=== PATIENT | female | born 1990 | race Caucasian/White ===

== ENCOUNTER 2023-03-10 11:21 | Emergency (ER) | payer OTHER, SELFPAY ==
--- NOTE | 2023-03-10 11:27 | ED.ABDPAIN ---
HPI - Abdominal Pain General Chief Complaint: Abdominal Pain Stated Complaint: abd pain sent by Urgent Care Related Data Allergies Allergy/AdvReac Type Severity Reaction Status Date / Time No Known Allergies Allergy Verified 03/10/23 11:30 [facility] Social History Social History Advance Directives: No Advance Directives Information Provided: No Physical Exam ED Vital Signs: BMI result Body Mass Index 25.2 Course Course Course Narrative: RME: 33 yo F w/PMHx presenting to the ED c/o LLQ abdoiminal pain and dysuria x yesterday, sent in from . +frequency. LMP ?25 days ago. denies vaginal bleeding or d/c abdomen soft w/suprapubic/L suprapubic/lower quadrant tenderness Labs, UA, pelvic and renal ultrasound ordered Full HPI, ROS and PE to be performed by primary ED provider. Medical Decision Making Lab Data 03/10/23 11:40 03/10/23 11:40 Labs: Lab Results 03/10/23 03/10/23 Range/Units 11:40 11:44 WBC 5.5 (4.8-10.8) X10*3/uL RBC 4.05 L (4.20-5.50) X10*6/uL Hgb 11.4 L (12.0-16.0) g/dl Hct 35.3 L (37.0-47.0) % MCV 87.2 (80.0-98.0) fL MCH 28.1 (27.0-33.0) pg MCHC 32.3 (31.0-35.0) g/dl RDW 14.2 (11.0-16.0) % Plt Count 221 (160-400) X10*3/uL MPV 10.6 (9.4-12.3) fL Immature Gran % (Auto) Cancelled Neut % (Auto) Cancelled Lymph % (Auto) Cancelled [place] % (Auto) Cancelled Eos % (Auto) Cancelled Baso % (Auto) Cancelled Lymph # (Auto) Cancelled [place] # (Auto) Cancelled Eos # (Auto) Cancelled Baso # (Auto) Cancelled Abs Immat Gran (auto) Cancelled Absolute Neuts (auto) Cancelled Absolute Nucleated RBC 0.000 (0.0-0.012) X10*3/uL Nucleated RBC % (auto) 0.0 (0.0-0.2) /100WBC Neutrophils % (Manual) 67 (45-73) % Band Neutrophils % 0 L (3-5) % Lymphocytes % (Manual) 29 (20-40) % Monocytes % (Manual) 2 (2-11) % Eosinophils % (Manual) 2 (0-4) % Abs Neuts (Manual) 3.7 (2.0-8.3) X10*3/uL Lymphocytes # (Manual) 1.6 (1.2-4.9) X10*3/uL Monocytes # (Manual) 0.1 (0.1-1.2) X10*3/uL Eosinophils # (Manual) 0.1 (0.0-0.4) X10*3/uL Platelet Estimate NORMAL (NORMAL) Plt Morphology Comment NORMAL RBC Morphology NORMAL Sodium 141 (135-145) mmol/L Potassium 4.0 (3.3-5.1) mmol/L Chloride 111 H (96-108) mmol/L Carbon Dioxide 25 (22-29) mmol/L Anion Gap 9 L (12-20) BUN 10 (9-16) mg/dL Creatinine 0.63 (0.5-1.4) mg/dL Estim Creat Clear Calc 118.0 Estimated GFR > 60 Random Glucose 84 (60-115) mg/dL Calcium 9.1 (8.4-10.2) mg/dL Magnesium 2.0 (1.6-2.6) mg/dL Total Bilirubin 1.6 H (0.0-1.0) mg/dL Direct Bilirubin 0.5 (0.0-0.5) mg/dL AST 17 (5-31) U/L ALT 17 (0-31) U/L Alkaline Phosphatase 80 (39-117) U/L Total Protein 7.3 (6.5-8.0) g/dL Albumin 4.5 (3.5-5.0) g/dL Lipase 21 (8-78) U/L Urine Color [place] A Urine Appearance Cloudy Urine pH 5.5 (5.0-9.0) Ur Specific [place] 1.020 (1.005-1.025) Urine Protein Negative (Neg-Trace) mg/dL Urine Glucose (UA) Negative (Negative) mg/dL Urine Ketones Negative (Negative) mg/dL Urine Blood Small (1+) H (Negative) Urine Nitrite Negative (Negative) Ur Leukocyte Esterase Small (1+) H (Negative) Urine RBC 6-10 H (0-2) /HPF Urine WBC 0-5 (0-5) /HPF Ur Squamous Epith Cells 11-20 (0-2) /HPF Urine Bacteria 1+ (None Seen) Hyaline Casts 0-2 (0-2) /LPF Urine Yeast Present Urine Test NEGATIVE (NEGATIVE) Discharge Plan Discharge Clinical Impression: Abdominal pain Patient Disposition: Left W/O Completing Treatment Stand Alone Forms: Against Medical Advice Discharge Date/Time: 03/10/23 19:56
[2023-03-10 11:28] VITALS: BP 114/66; PULSE 62; RESP 18; TEMP 36.1; O2SAT 97; BMI 25.2
== END 2023-03-10 19:56 | disposition left against medical advice (07) ==
PROVIDERS: Emergency Provider Emergency Medicine; PCP Internal Medicine
DX: R30.0 Dysuria (principal); R10.32 Left lower quadrant pain
CPT/HCPCS: 36415; 76775; 76830; 76856; 80048; 80076; 81001; 81003; 81025; 83690; 83735; 85007; 85027; 87086; 93975; 99282; 99284

== ENCOUNTER 2024-05-07 13:50 | Emergency (ER) | payer OTHER, SELFPAY ==
--- NOTE | ~2024-05-07 | CT_ITS ---
CLINICAL HISTORY: Abdominal pain. cramping, rectal bleeding. colitis CT abdomen and pelvis without contrast Comparison: None Findings: Examination is limited by without contrast. Lung bases are clear. No pleural effusion. There is an indeterminate 2.4 x 2.7 cm hypodense lesion in the right lobe of the liver series 3, image 19. Mild splenomegaly. Pancreas and both adrenals show normal size, shape and attenuation on present unenhanced scan. No CBD dilatation. No calcified gallstone in the gallbladder. Both kidneys reveal normal in size, shape, position and attenuation. Limited evaluation of a 6.5 cm right renal cyst. No kidney stone. No hydronephrosis. The IVC, aorta and portal vein are within normal position and caliber. No evidence of retroperitoneal lymphadenopathy or ascites. Small fat containing umbilical hernia. Appendix is not visualized. No evidence of bowel obstruction. There is bowel wall thickening of the descending colon, sigmoid colon and rectum. Bladder is decompressed. The pelvic organs are unremarkable. Visualized osseous structures appear unremarkable. No lytic or sclerotic bony lesion. IMPRESSION: Bowel wall thickening of the colon concerning for colitis. Correlation with colonoscopy findings as indicated. There is an indeterminate lesion in the liver. Further evaluation by multiphase contrast CT or MRI as indicated. Additional findings as above. This document has been electronically signed by: Rand Renee MD on 05/07/2024 18:35:18
[2024-05-07 13:58] VITALS: BP 112/67; PULSE 99; RESP 16; TEMP 36.5; O2SAT 98; BMI 26.0
--- NOTE | 2024-05-07 14:07 | ED.GENADULT ---
HPI - General Adult General Chief complaint: Nausea/Vomiting/Diarrhea Stated complaint: cramping Time Seen by Provider: 05/07/24 18:33 Source: patient, RN notes reviewed and old records reviewed Mode of arrival: ambulatory Limitations: no limitations History of Present Illness ED Provider: Carlo RAMÍREZ narrative: 34-year-old female presents for evaluation of abdominal pain, nausea vomiting, diarrhea. She also complains of bloody stool. She developed lower abdominal cramping this morning with bright red blood per rectum. She does report a history of similar. This is happened twice in the past and all 3 times counting today she was taking Macrobid for UTI when the rectal bleeding started. the patient has a family history of colon cancer and had a colonoscopy in January that did not show any concerning findings she has no other complaints or concerns at this time. Denies any history abdominal surgeries Related Data Previous Rx's ?Medication ?Instructions ?Recorded amoxicillin 875 mg-potassium 1 tab PO Q12H #14 tabs 05/07/24 clavulanate 125 mg tablet Allergies Allergy/AdvReac Type Severity Reaction Status Date / Time No Known Allergies Allergy Verified 05/07/24 14:08 Review of Systems Constitutional: Constitutional: Denies body ache(s), Denies chills, Denies fever(s) and Denies headache(s) Eyes: Eyes: Denies blurry vision ENT: Denies vertigo and Denies headache(s) Cardiovascular: Cardiovascular: Denies chest pain and Denies dyspnea Respiratory: Respiratory: Denies cough and Denies dyspnea Gastrointestinal: Gastrointestinal: Reports abdominal pain, Denies melena, Reports hematochezia, Reports diarrhea, Reports loose stools and Reports vomiting Musculoskeletal: Musculoskeletal: Denies back pain Integumentary/Breasts: Skin/Breast: Denies rash Neurologic: Denies vertigo and Denies headache(s) PMFSH Social History Social History Advance Directives: No Advance Directives Information Provided: Yes Physical Exam ED Vital Signs: Vital Signs - 24 hr 05/07/24 13:58 05/07/24 19:22 Temperature 97.7 F 97.7 F Pulse Rate 99 99 Respiratory Rate 16 16 Blood Pressure 112/67 112/67 Pulse Oximetry 98 98 Oxygen Delivery Method Room Air Room Air BMI result Body Mass Index 26.0 Const General: healthy appearing, comfortable, no acute distress, alert and awake Nutritional Appearance: well nourished Orientation/consciousness: patient oriented x3 HENMT Head: Yes normocephalic and Yes atraumatic Eyes Eyelids: Yes eyelids normal Conjunctivae: conjunctivae normal Sclerae: sclerae normal Corneas: corneas normal Pupils: Equal, round and reactive pupils present EOM: EOMs intact bilaterally Neck Neck: Yes full ROM Resp Effort & Inspection: normal respiratory effort, able to speak in complete sentences and not labored GI Inspection: No distended Palpation (GI): Soft to palpation, not firm, nontender, no guarding and not rigid Rectal Exam - Female: deferred ( patient offered rectal exam but declined) Skin General skin exam: elasticity normal Neuro General: patient oriented x3 Cranial nerves: Yes Equal, round and reactive pupils present and Yes Bilaterally intact EOM present Cognition (Neuro): normal cognition Extrem Other: Moving all extremities well without any obvious deformities Course Course Course Narrative: RME: 34 year 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 Bright red blood in diarrhea. Patient recently started on antibiotic Macrobid. Labs ordered. Medical Decision Making Medical Decision Making [facility] Narrative: 34-year-old female presents for evaluation of lower abdominal cramping mostly left-sided with bright red blood per rectum. Symptoms started this morning. She is not anticoagulated. She would have a clean colonoscopy in January. the patient has no leukocytosis. She does have a mild bandemia likely related to the colitis. offered rectal examination with the patient declined. she has a mild normocytic anemia that is slightly improved from her baseline labs that we had from a year ago. No significant electrolyte abnormalities. CT scan shows colitis but no complication, abscess or perforation. I discussed treatment options with the patient including liquid diet or transitioning her antibiotic to Augmentin which should cover UTI as well as colitis which the patient elected to try. Her CT scan also showed an indeterminate liver lesion which was discussed with the patient and recommended follow up with her PCP. Her vital signs are stable and she is well-appearing, she will call her GI provider tomorrow Differential Diagnosis Differential Diagnoses: The differential diagnosis associated with the presentation includes Colitis Diverticulitis Crohn's disease Colon cancer less likely Hemorrhoids Lab Data [facility] Lab Attestation statement: I reviewed the patient's lab results. as above 05/07/24 14:17 05/07/24 14:16 Labs: Lab Results 05/07/24 05/07/24 Range/Units 14:16 14:17 WBC 8.4 (4.8-10.8) X10*3/uL RBC 4.10 L (4.20-5.50) X10*6/uL Hgb 11.7 L (12.0-16.0) g/dl Hct 35.3 L (37.0-47.0) % MCV 86.1 (80.0-98.0) fL MCH 28.5 (27.0-33.0) pg MCHC 33.1 (31.0-35.0) g/dl RDW 13.3 (11.0-16.0) % Plt Count 224 (160-400) X10*3/uL MPV 10.1 (9.4-12.3) fL Immature Gran % (Auto) Cancelled Neut % (Auto) Cancelled Lymph % (Auto) Cancelled [place] % (Auto) Cancelled Eos % (Auto) Cancelled Baso % (Auto) Cancelled Lymph # (Auto) Cancelled [place] # (Auto) Cancelled Eos # (Auto) Cancelled Baso # (Auto) Cancelled Abs Immat Gran (auto) Cancelled Absolute Neuts (auto) Cancelled Absolute Nucleated RBC 0.000 (0.0-0.012) X10*3/uL Nucleated RBC % (auto) 0.0 (0.0-0.2) /100WBC Neutrophils % (Manual) 68 (45-73) % Band Neutrophils % 6 H (3-5) % Lymphocytes % (Manual) 19 L (20-40) % Atypical Lymphs % (Man) 1 (0-6) % Monocytes % (Manual) 4 (2-11) % Basophils % (Manual) 2 (0-2) % Abs Neuts (Manual) 6.2 (2.0-8.3) X10*3/uL Lymphocytes # (Manual) 1.6 (1.2-4.9) X10*3/uL Atyp Lymphs # (Manual) 0.1 x10*3/uL Monocytes # (Manual) 0.3 (0.1-1.2) X10*3/uL Basophils # (Manual) 0.2 (0.0-0.2) X10*3/uL Platelet Estimate NORMAL (NORMAL) Plt Morphology Comment NORMAL RBC Morphology NOTED Polychromasia 2+ (3-5) /OIF Basophilic Stippling 1+ (0-2) /OIF PT 11.7 (10.9-12.4) SEC INR 1.0 (0.9-1.1) APTT 30.2 (26.0-36.8) SEC Sodium 142 (135-145) mmol/L Potassium 3.6 (3.3-5.1) mmol/L Chloride 108 (96-108) mmol/L Carbon Dioxide 25 (22-29) mmol/L Anion Gap 13 (12-20) BUN 10 (9-16) mg/dL Creatinine 0.60 (0.5-1.4) mg/dL Estim Creat Clear Calc 120.0 Estimated GFR > 60 Random Glucose 81 (60-115) mg/dL Calcium 9.2 (8.4-10.2) mg/dL Total Bilirubin 1.3 H (0.0-1.0) mg/dL AST 33 H (5-31) U/L ALT 34 H (0-31) U/L Alkaline Phosphatase 101 (39-117) U/L Total Protein 7.6 (6.5-8.0) g/dL Albumin 4.5 (3.5-5.0) g/dL Lipase 20 (8-78) U/L Beta HCG, Quant < 2 mIU/mL Radiology Impression Discussion of test interpretation with radiology: I have reviewed the radiologist's reading. Radiologist Impression: Findings: Examination is limited by without contrast. Lung bases are clear. No pleural effusion. There is an indeterminate 2.4 x 2.7 cm hypodense lesion in the right lobe of the liver series 3, image 19. Mild splenomegaly. Pancreas and both adrenals show normal size, shape and attenuation on present unenhanced scan. No CBD dilatation. No calcified gallstone in the gallbladder. Both kidneys reveal normal in size, shape, position and attenuation. Limited evaluation of a 6.5 cm right renal cyst. No kidney stone. No hydronephrosis. The IVC, aorta and portal vein are within normal position and caliber. No evidence of retroperitoneal lymphadenopathy or ascites. Small fat containing umbilical hernia. Appendix is not visualized. No evidence of bowel obstruction. There is bowel wall thickening of the descending colon, sigmoid colon and rectum. Bladder is decompressed. The pelvic organs are unremarkable. Visualized osseous structures appear unremarkable. No lytic or sclerotic bony lesion. IMPRESSION: Bowel wall thickening of the colon concerning for colitis. Correlation with colonoscopy findings as indicated. There is an indeterminate lesion in the liver. Further evaluation by multiphase contrast CT or MRI as indicated. Additional findings as above. This document has been electronically signed by: Rand Renee MD on 05/07/2024 18:35:18 Discharge Plan Discharge Clinical Impression: Colitis Patient Disposition: Home, Self-Care Instructions: Acute Diarrhea (ED) Additional Instructions: you may stop the Macrobid. Take Augmentin twice daily for 1 week for colitis which should also treat UTI. Follow up with your GI doctor. Return for new or worsening symptoms Prescriptions: New amoxicillin-pot clavulanate 875-125 mg tablet 1 tab PO Q12H Qty: 14 0RF Interventions: ED Discharge Assessment Last Done: 05/07/24 19:22 Discharge Date/Time: 05/07/24 19:23 Print Language: Macedonian
[2024-05-07 14:26] LABS: Hematocrit 35.3 % (37.0-47.0); Hemoglobin 11.7 g/dl (12.0-16.0); Mean Corpuscular HGB Conc 33.1 g/dl (31.0-35.0); Mean Corpuscular Hemoglobin 28.5 pg (27.0-33.0); Mean Corpuscular Volume 86.1 fL (80.0-98.0); Mean Platelet Volume 10.1 fL (9.4-12.3); Platelet Count 224 X10*3/uL (160-400); Red Cell Distribution Width 13.3 % (11.0-16.0); White Blood Count 8.4 X10*3/uL (4.8-10.8)
[2024-05-07 14:28] LABS: Prothrombin Time 11.7 SEC (10.9-12.4)
[2024-05-07 14:30] LABS: Partial Thromboplastin Time 30.2 SEC (26.0-36.8)
[2024-05-07 14:46] LABS: Atypical Lymph Absolute Manual 0.1 x10*3/uL; Atypical Lymphs Percent Manual 1 % (0-6); Band Neutrophils Percent 6 % (3-5); Basophils Abs Manual 0.2 X10*3/uL (0.0-0.2); Basophils Percent Manual 2 % (0-2); Lymphocytes Absolute Manual 1.6 X10*3/uL (1.2-4.9); Lymphocytes Percent Manual 19 % (20-40); Monocytes Absolute Manual 0.3 X10*3/uL (0.1-1.2); Monocytes Percent Manual 4 % (2-11); Neutrophils Absolute Manual 6.2 X10*3/uL (2.0-8.3); Neutrophils Percent Manual 68 % (45-73)
[2024-05-07 14:53] LABS: Basophilic Stippling 1+ (0-2) /OIF; Platelet Estimate NORMAL (NORMAL); Platelet Morphology Comment NORMAL; Polychromasia 2+ (3-5) /OIF; RBC Morphology NOTED
[2024-05-07 14:59] LABS: Alanine Aminotransferase 34 U/L (0-31); Albumin Level 4.5 g/dL (3.5-5.0); Alkaline Phosphatase 101 U/L (39-117); Anion Gap 13 (12-20); Aspartate Amino Transferase 33 U/L (5-31); Bilirubin Total 1.3 mg/dL (0.0-1.0); Blood Urea Nitrogen 10 mg/dL (9-16); Calcium 9.2 mg/dL (8.4-10.2); Carbon Dioxide 25 mmol/L (22-29); Chloride 108 mmol/L (96-108); Estimated Glomerular Filt Rate > 60; Glucose Random 81 mg/dL (60-115); Lipase 20 U/L (8-78); Potassium 3.6 mmol/L (3.3-5.1); Sodium 142 mmol/L (135-145); Total Protein 7.6 g/dL (6.5-8.0)
[2024-05-07 15:01] LABS: HCG Quantitative < 2 mIU/mL
[2024-05-07 19:22] VITALS: BP 112/67; PULSE 99; RESP 16; TEMP 36.5; O2SAT 98
== END 2024-05-07 19:23 | disposition home or self-care (01) ==
PROVIDERS: Physician Assistant; Emergency Provider Emergency Medicine; PCP Radiology Vascular & Interventional Radiology
DX: K52.9 Noninfective gastroenteritis and colitis, unspecified (principal); R11.2 Nausea with vomiting, unspecified; R10.2 Pelvic and perineal pain; Z79.899 Other long term (current) drug therapy
CPT/HCPCS: 36415; 74176; 80053; 83690; 84702; 85007; 85027; 85610; 85730; 99283; 99284

== ENCOUNTER → 2024-05-07 17:04 | Outpatient (BNV) | payer OTHER, SELFPAY | PROVIDERS: PCP Radiology Vascular & Interventional Radiology; Visit Provider Nuclear Medicine | DX: R10.9 Unspecified abdominal pain (principal) | CPT/HCPCS: 74176 ==